=== PATIENT | male | born 1980 | race Caucasian/White ===

== ENCOUNTER 2017-11-09 16:57 | Emergency (ER) | payer MEDICAID ==
[~2017-11-09] VITALS: Ht 210.8 cm; Wt 113.6 kg
[~2017-11-09 16:57] MED LIST: ALLEGRA-D TABLE1 TAB PO; CELEBREX 200MG200 MG PO; EPIPEN 2-PAK1 MG/ML IM; MEDROL 4MG DOSPA4 MG PO; MOBIC15 MG PO; NEURONTIN100 MG/CAP PO; NORCO 325 MG-7.1 TAB PO; PERCOCET 500 MG1 TAB PO; PREDNISONE20 MG PO; PROVENTIL0.09 MG/A1 IH; ROBAXIN 50500 MG/TAB PO; SINGULAIR 110 MG/TAB PO; ULTRAM 50MG TAB50 MG PO; ULTRAM ER100 MG PO; ZYRTEC 10MG10 MG PO
[2017-11-09 17:00] VITALS: TEMP 98.1
[2017-11-09 17:39] LABS: BASO % 0.2 % (0.0-2.0); EOS # 0.2 (0.0-0.7); EOS % 1.4 % (0-4.0); GRAN # 8.9 (1.4-6.5); GRAN % 65.9 % (42.2-75.2); HEMATOCRIT 42.4 % (42.0-52.0); HEMOGLOBIN 14.2 g/dl (13.5-18.0); LYMPH % 22.2 % (20.0-51.0); MEAN CELL VOLUME 89 fl (80.0-100.0); MEAN CORPUSCULAR HEMOGLOBIN 30 pg (27.0-31.0); MEAN CORPUSCULAR HGB CONC 34 g/dl (33.0-37.0); MEAN PLATELET VOLUME 10.5 fl (7.4-10.4); MONO # 1.4 (0.1-0.6); PLATELET COUNT 312 K/mm3 (130-400); RED BLOOD COUNT 4.75 M/mm3 (4.20-5.60); REDCELL DISTRIBUTION WIDTH-CV 14.6 % (11.5-14.5)
[2017-11-09 17:50] LABS: ALBUMIN 4.1 gm/dL (3.5-5.0); BILIRUBIN,TOTAL 0.6 mg/dL (0.0-1.0); CALCIUM 9.3 mg/dL (8.4-10.2); CREATININE, serum 0.97 mg/dL (0.66-1.25); TOTAL PROTEIN 7.5 gm/dL (6.4-8.2)
[2017-11-09] MEDS ORDERED: PROTONIX 40MG T40 MG PO (18:34)
[2017-11-09 20:08] LABS: COLLECTION METHOD CLEAN CATCH
[2017-11-09 20:14] LABS: MUCOUS Present /lpf; PH 6 (5-8); SQUAMOUS EPITHELIAL 0-2 /hpf; URINE APPEARANCE Clear; URINE BACTERIA None Seen /hpf; URINE BILIRUBIN Negative (NEGATIVE); URINE BLOOD 2+ (NEGATIVE); URINE COLOR Yellow; URINE GLUCOSE Negative (NEGATIVE); URINE KETONE 1+ (NEGATIVE); URINE LEUKOCYTE ESTERASE Negative (NEGATIVE); URINE NITRATE Negative (NEGATIVE); URINE PROTEIN(semi-quant) Negative (NEGATIVE); URINE RBC 20-50 /hpf; URINE UROBILINOGEN >=4.0 mg/dL (NEGATIVE)
[2017-11-09] MEDS ORDERED: ZOFRAN ODT4 MG PO (20:34)
[2017-11-09] MEDS ORDERED: NORCO 325 MG-51 TAB PO (20:34)
[2017-11-09 20:55] VITALS: BP 120/74; PULSE 95
== END 2017-11-09 20:55 | disposition home or self-care (01) ==
LOC: COL.ER 16:57
PROVIDERS: Emergency Medicine
DX: N20.2 Calculus of kidney with calculus of ureter (principal); Z98.890 Other specified postprocedural states
CPT/HCPCS: J1170; J2405; J2765; J3010; J7030

== ENCOUNTER → 2018-07-21 | Outpatient (CLI) | payer MEDICAID ==
[~2018-07-21] MED LIST changes: +NORCO 325 MG-51 TAB PO; +PROTONIX 40MG T40 MG PO; +ZOFRAN ODT4 MG PO
== END ==
LOC: COL.LAB 12:48
DX: Z13.29 Encounter for screening for other suspected endocrine disorder (principal); J45.20 Mild intermittent asthma, uncomplicated; L50.9 Urticaria, unspecified

== ENCOUNTER 2021-04-04 23:17 | Emergency (ER) | payer MEDICAID ==
[2021-04-05 01:14] VITALS: TEMP 97.9
[2021-04-05 01:18] LABS: BASO % 0.3 % (0.0-2.0); EOS # 0.2 K/mm3 (0.0-0.7); EOS % 2.5 % (0-4.0); GRAN # 3.6 K/mm3 (1.4-6.5); LYMPH # 1.6 K/mm3 (1.2-3.4); MEAN CELL VOLUME 87 fl (80.0-100.0); MEAN CORPUSCULAR HEMOGLOBIN 30 pg (27.0-31.0); MEAN CORPUSCULAR HGB CONC 35 g/dl (33.0-37.0); MEAN PLATELET VOLUME 11.8 fl (7.4-10.4); MONO # 0.6 K/mm3 (0.1-0.6); MONO % 9.9 % (1.7-9.3); PLATELET COUNT 113 K/mm3 (130-400); RED BLOOD COUNT 5.66 M/mm3 (4.20-5.60); REDCELL DISTRIBUTION WIDTH-CV 14.4 % (11.5-14.5)
[2021-04-05 02:38] LABS: ANION GAP 14 mmol/L (7-16); BLOOD UREA NITROGEN 13 mg/dL (9-20); CALCIUM 9.2 mg/dL (8.4-10.2); CARBON DIOXIDE 17 mmol/L (22-30); CHLORIDE 107 mmol/L (98-107); CREATININE, serum 0.88 mg/dL (0.72-1.25); GLUCOSE 94 mg/dL (74-106); POTASSIUM 4.3 mmol/L (3.4-5.0); SODIUM 138 mmol/L (137-145); TOTAL PROTEIN 7.8 gm/dL (6.4-8.2)
[2021-04-05 02:39] LABS: ALANINE AMINOTRANSFERASE 34 U/L (4-49); ALBUMIN 3.7 gm/dL (3.5-5.0); ALKALINE PHOSPHATASE 93 U/L (50-136); AST,SGOT 39 U/L (15-37); BILIRUBIN,TOTAL 0.3 mg/dL (0.2-1.2); C-REACTIVE PROTEIN 3.68 mg/dL (0.00-0.50); TROPONIN-I < 0.010 ng/mL (0.00-0.033)
[2021-04-05 04:44] VITALS: BP 111/57; PULSE 84
== END 2021-04-05 04:53 | disposition home or self-care (01) ==
LOC: COL.ER 23:17
PROVIDERS: Nurse Practitioner
DX: U07.1 COVID-19 (principal); J45.909 Unspecified asthma, uncomplicated; F17.210 Nicotine dependence, cigarettes, uncomplicated; Z73.0 Burn-out; Z79.899 Other long term (current) drug therapy
CPT/HCPCS: J2405; J7030; Q9967

== ENCOUNTER 2022-06-26 05:21 | Emergency (ER) | payer MEDICAID ==
[~2022-06-26] VITALS: Ht 182.9 cm; Wt 9.1 kg
[~2022-06-26 05:21] MED LIST changes: +TRELEGY ELLIPT1 EACH IH
[2022-06-26 05:29] VITALS: TEMP 98.2
[2022-06-26 06:02] LABS: HEMATOCRIT 46.3 % (42.0-52.0); HEMOGLOBIN 15.4 g/dl (13.5-18.0); MEAN CELL VOLUME 92 fl (80.0-100.0); MEAN CORPUSCULAR HEMOGLOBIN 31 pg (27-31); MEAN CORPUSCULAR HGB CONC 33 g/dl (33.0-37.0); MEAN PLATELET VOLUME 11.5 fl (7.4-10.4); PLATELET COUNT 249 K/mm3 (130-400); RED BLOOD COUNT 5.02 M/mm3 (4.20-5.60)
[2022-06-26 06:13] LABS: PROTHROMBIN TIME 11.3 SECONDS (9.7-12.8)
[2022-06-26 06:19] LABS: CALCIUM 9.3 mg/dL (8.4-10.2); CREATININE, serum 0.8 mg/dL (0.72-1.25); POTASSIUM 4.1 mmol/L (3.5-4.5)
[2022-06-26 06:25] LABS: BAND 2 % (0-10); LYMPHOCYTE 31 % (20.0-51.0); NEUTROPHILS 63 % (42.0-75.2); PLATELET ESTIMATE NORMAL (NORMAL)
[2022-06-26] MEDS ORDERED: FLEXERIL5 MG PO (08:30)
[2022-06-26 08:35] VITALS: BP 137/88; PULSE 63
[2022-06-30] MEDS ORDERED: ROBAXIN 75750 MG/TAB PO (05:17)
== END 2022-06-26 08:36 | disposition home or self-care (01) ==
LOC: COL.ER 05:21
PROVIDERS: Emergency Medicine
DX: R51.9 Headache, unspecified (principal); D72.829 Elevated white blood cell count, unspecified; M54.2 Cervicalgia; Z28.310 Unvaccinated for COVID-19
CPT/HCPCS: J2360; J2765; J7030; Q9967

== ENCOUNTER 2023-06-14 05:04 | Emergency (ER) | payer OTHER ==
[~2023-06-14] VITALS: Ht 200.7 cm; Wt 109.1 kg
[~2023-06-14 05:04] MED LIST changes: +FLEXERIL5 MG PO; +ROBAXIN 75750 MG/TAB PO
[2023-06-14 05:08] VITALS: TEMP 98
[2023-06-14] MEDS ORDERED: NS 1,000 ML IV ONE (05:30)
[2023-06-14] MEDS ORDERED: fentaNYL 50 MCG/ML 2 ML VIAL IV ONE (05:30)
[2023-06-14 05:37] LABS: COLLECTION METHOD CLEAN CATCH
[2023-06-14 05:40] LABS: BASO # 0.1 K/mm3 (0.0-0.2); BASO % 0.3 % (0.0-2.0); EOS # 0.3 K/mm3 (0.0-0.7); EOS % 1.8 % (0.0-4.0); GRAN # 10.2 K/mm3 (1.4-6.5); GRAN % 67.2 % (42.2-75.2); HEMATOCRIT 44.4 % (42.0-52.0); HEMOGLOBIN 14.6 g/dl (13.5-18.0); LYMPH # 3.3 K/mm3 (1.2-3.4); LYMPH % 21.7 % (20.0-51.0); MEAN CELL VOLUME 91 fl (80.0-100.0); MEAN CORPUSCULAR HEMOGLOBIN 30 pg (27-31); MEAN CORPUSCULAR HGB CONC 33 g/dl (33.0-37.0); MEAN PLATELET VOLUME 9.8 fl (7.4-10.4); MONO # 1.3 K/mm3 (0.1-0.6); MONO % 8.7 % (1.7-9.3); PLATELET COUNT 315 K/mm3 (130-400); RED BLOOD COUNT 4.87 M/mm3 (4.20-5.60); REDCELL DISTRIBUTION WIDTH-CV 14.6 % (11.5-14.5)
[2023-06-14 05:46] LABS: URINE APPEARANCE Clear (CLEAR/HAZY); URINE COLOR Yellow (YELLOW)
[2023-06-14 05:47] LABS: PH 5.5 (5.0-8.5); URINE BLOOD 1+ (NEGATIVE); URINE GLUCOSE Negative (NEGATIVE); URINE KETONE Negative (NEGATIVE); URINE NITRATE Negative (NEGATIVE); URINE PROTEIN(semi-quant) Negative (NEGATIVE); URINE UROBILINOGEN 0.2 E.U/dL (0.2-1.0)
[2023-06-14 05:54] LABS: MUCOUS Present (NOT PRESENT); URINE BACTERIA Rare /hpf (NONE SEEN)
[2023-06-14] MEDS ORDERED: Iohexol 300 - 100 ML VIAL IV ONE (05:57)
[2023-06-14] MEDS ORDERED: NS 60 ML IV ONE (05:58)
[2023-06-14 06:04] LABS: ALBUMIN 3.7 gm/dL (3.5-5.0); BILIRUBIN,TOTAL 0.3 mg/dL (0.2-1.2); CALCIUM 9.3 mg/dL (8.4-10.2); CREATININE, serum 0.85 mg/dL (0.72-1.25); POTASSIUM 3.9 mmol/L (3.5-4.5); TOTAL PROTEIN 6.9 gm/dL (6.2-8.1)
[2023-06-14 06:12] LABS: TRICYCLIC ANTIDEPRESS URINE NEGATIVE (NEGATIVE)
[2023-06-14 07:14] VITALS: BP 135/75; PULSE 71
== END 2023-06-14 07:18 | disposition home or self-care (01) ==
LOC: COL.ER 05:04
PROVIDERS: Emergency Medicine
DX: S20.211A Contusion of right front wall of thorax, initial encounter (principal); R51.9 Headache, unspecified; M54.2 Cervicalgia; R31.9 Hematuria, unspecified; M25.521 Pain in right elbow; M79.631 Pain in right forearm; D72.829 Elevated white blood cell count, unspecified; E87.8 Other disorders of electrolyte and fluid balance, not elsewhere classified; M54.6 Pain in thoracic spine; R42 Dizziness and giddiness; R11.0 Nausea; F17.210 Nicotine dependence, cigarettes, uncomplicated; V89.2XXA Person injured in unspecified motor-vehicle accident, traffic, initial encounter; Y92.410 Unspecified street and highway as the place of occurrence of the external cause
CPT/HCPCS: J3010; J7030; Q9967

== ENCOUNTER 2023-08-03 12:57 | Outpatient (RCR) | payer OTHER | END 2023-08-28 | LOC: WSOH | DX: S16.1XXD Strain of muscle, fascia and tendon at neck level, subsequent encounter (principal); S46.012D Strain of muscle(s) and tendon(s) of the rotator cuff of left shoulder, subsequent encounter; S06.0X0S Concussion without loss of consciousness, sequela; V89.9XXS Person injured in unspecified vehicle accident, sequela; Y99.0 Civilian activity done for income or pay ==

== ENCOUNTER → 2023-09-21 | Outpatient (CLI) | payer OTHER | LOC: MHCPAIN 10:52 | DX: M54.2 Cervicalgia (principal); M54.6 Pain in thoracic spine; M79.18 Myalgia, other site | CPT/HCPCS: G0463 ==

== ENCOUNTER → 2024-02-27 | Outpatient (CLI) | payer OTHER | LOC: MHCPAIN 15:03 | DX: M54.2 Cervicalgia (principal); M54.81 Occipital neuralgia | CPT/HCPCS: G0463 ==

== ENCOUNTER → 2024-03-26 | Outpatient (CLI) | payer OTHER | LOC: MHCPAIN 14:58 | DX: M54.81 Occipital neuralgia (principal) | CPT/HCPCS: J0665; J1010 ==

== ENCOUNTER → 2024-04-25 | Outpatient (CLI) | payer OTHER ==
[~2024-04-25] MED LIST changes: +FIORINAL 325 MG1 CAP PO
== END ==
LOC: MHCPAIN 13:21
DX: G89.29 Other chronic pain (principal); M54.2 Cervicalgia; G44.86 Cervicogenic headache; M54.6 Pain in thoracic spine; G56.90 Unspecified mononeuropathy of unspecified upper limb
CPT/HCPCS: G0463